=== PATIENT | female | born 1995 | race Caucasian/White ===

== ENCOUNTER 2021-11-23 14:43 | Emergency (ER) | payer OTHER ==
[2021-11-23 15:14] VITALS: BP 108/70; PULSE 69; TEMP 98.1; BMI 27.4
[2021-11-23 17:52] LABS: URINE APPEARANCE CLEAR; URINE BILIRUBIN NEGATIVE (NEGATIVE); URINE COLOR YELLOW; URINE GLUCOSE (UA) NEGATIVE (NEGATIVE); URINE KETONE NEGATIVE (NEGATIVE); URINE LEUK ESTERASE NEGATIVE (NEGATIVE); URINE NITRITE NEGATIVE (NEGATIVE); URINE PROTEIN NEGATIVE (NEGATIVE); URINE UROBILINOGEN 0.2 mg/dL (0.2-1.0)
[2021-11-23] MEDS ORDERED: ACETAMINOPHEN 500 MG TABLET (FP) PO ONE (18:20)
[2021-11-23] MEDS ORDERED: ACETAMINOPHEN 500 MG TABLET (FP) ONE (18:26)
== END 2021-11-23 21:00 | disposition home or self-care (01) ==
LOC: JER 14:43
DX: R10.30 Lower abdominal pain, unspecified (principal)
CPT/HCPCS: 76817-TC; 81003; 84703; 87086; 87186; 99284-25

== ENCOUNTER 2021-12-23 04:23 | Emergency (ER) | payer OTHER ==
[2021-12-23 04:33] VITALS: BMI 26.3
[2021-12-23] MEDS ORDERED: METOCLOPRAMIDE HCL INJECTION 10 MG/2 ML VIAL IVPUSH ONE (06:01)
[2021-12-23] MEDS ORDERED: ACETAMINOPHEN 1000 MG/100 ML BAG IVPB ONE (06:03)
[2021-12-23] MEDS ORDERED: SODIUM CHLORIDE 0.9% 500 ML INFUS.BAG IV ONE (06:04)
[2021-12-23] MEDS ORDERED: METOCLOPRAMIDE HCL INJECTION 10 MG/2 ML VIAL ONE (06:15)
[2021-12-23] MEDS ORDERED: ACETAMINOPHEN INJECTION 100 ML IVPB ONE (06:15)
[2021-12-23 09:00] VITALS: BP 92/60; PULSE 67; TEMP 98.4
[2021-12-23 10:16] LABS: URINE APPEARANCE CLEAR; URINE BILIRUBIN NEGATIVE (NEGATIVE); URINE COLOR YELLOW; URINE GLUCOSE (UA) NEGATIVE (NEGATIVE); URINE KETONE NEGATIVE (NEGATIVE); URINE LEUK ESTERASE NEGATIVE (NEGATIVE); URINE NITRITE NEGATIVE (NEGATIVE); URINE PROTEIN NEGATIVE (NEGATIVE); URINE UROBILINOGEN 0.2 mg/dL (0.2-1.0)
== END 2021-12-23 11:46 | disposition home or self-care (01) ==
LOC: JER 04:23
PROC: 3E033GC Introduction of Other Therapeutic Substance into Peripheral Vein, Percutaneous Approach (ICD-10-PCS; principal; 2021-12-23)
DX: R51.9 Headache, unspecified (principal)
CPT/HCPCS: 70450-TC; 81003; 84703; 87086; 87186; 99285-25

== ENCOUNTER 2022-02-14 20:08 | Emergency (ER) | payer OTHER ==
[2022-02-14 20:14] VITALS: BP 116/82; PULSE 68; TEMP 97.6; BMI 25.8
[2022-02-14] MEDS ORDERED: IBUPROFEN 600 MG TABLET (FP) PO ONE ×2 (22:19→22:23)
== END 2022-02-14 23:51 | disposition home or self-care (01) ==
LOC: JER 20:08
DX: J06.9 Acute upper respiratory infection, unspecified (principal); R05.1 Acute cough
CPT/HCPCS: 0241U-QW; 87807; 99283-25; C9803-CS; U0003; U0005